=== PATIENT | male | born 1990 | race American Indian/Alaskan Native ===

== ENCOUNTER 2020-04-01 12:40 | Emergency (ER) | payer SELFPAY ==
--- NOTE | 2020-04-01 12:58 | Event Note ---
ED Screening Note Date of service: 04/01/20 Time: 12:58 ED Screening Note: Patient complains of deformity and injury to right fourth finger after playing basketball today Patient will likely need finger reduction This initial assessment/diagnostic orders/clinical plan/treatment(s) is/are subj ect to change based on patients health status, clinical progression and re- assessment by fellow clinical providers in the ED. Further treatment and workup at subsequent clinical providers discretion. Patient/guardian urged not to elope from the ED as their condition may be serious if not clinically assessed and managed. Initial orders include: ACC X-ray
[2020-04-01 12:59] VITALS: BP 153/82
[2020-04-01] MEDS ORDERED: oxyCODONE /ACETAMINOPHEN 5-325MG TAB PO ONE (12:59)
[2020-04-01] MEDS ORDERED: IBUPROFEN 800 MG TAB PO ONE (12:59)
--- NOTE | 2020-04-01 13:41 | XRay Report ---
RIGHT HAND 2 VIEWS INDICATION: injury, pain, deformity to 4th digit. COMPARISON: None. IMPRESSION: There is posterior dislocation at the PIP joint of the fourth digit. No obvious associat ed fracture. The remaining bony structures and joint spaces are unremarkable. 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 Signer Name: Haroldo Lloyd Jr, MD Signed: 04/01/2020 1:37 PM Workstation Name: [id number]
--- NOTE | 2020-04-01 18:04 | Emergency Department Report ---
ED Upper Extremity Inj HPI - General Chief Complaint: Extremity Injury, Upper Stated Complaint: RT FINGER BROKEN Time Seen by Provider: 04/01/20 12:56 Source: patient Mode of arrival: Ambulatory Limitations: No Limitations - History of Present Illness MD Complaint: Injury to:: right, finger -: hour(s) (6) Other Extremity Injury: Fingers: Right Place: outdoors (Plan basketball hit finger resulting in jamming dislocation to the fourth phalange) Worsens With: movement of extremity Context: direct blow, injury Associated Symptoms: other (Deformity). denies: numbness, neck pain, nausea/vomiting, heard/felt popping sensat - Related Data Previous Rx's Medication Instructions Recorded Last Taken Type Acetaminophen/Codeine [Tylenol 1 tab PO Q6H PRN #10 tab 04/01/20 Unknown Rx /Codeine # 3 tab] Allergies Allergy/AdvReac Type Severity Reaction Status Date / Time No Known Allergies Allergy Unverified 04/01/20 12:56 ED Review of Systems ROS: Stated complaint: RT FINGER BROKEN Other details as noted in HPI Comment: All other systems reviewed and negative ED Past Medical Hx - Past Medical History Previous Medical History?: No - Surgical History Past Surgical History?: No - Social History Smoking Status: Unknown if ever smoked Substance Use Type: None - Medications Home Medications: Home Medications Medication Instructions Recorded Confirmed Last Taken Type Acetaminophen/Codeine [Tylenol 1 tab PO Q6H PRN #10 tab 04/01/20 Unknown Rx /Codeine # 3 tab] ED Physical Exam - General Limitations: No Limitations General appearance: alert, in no apparent distress - Head Head exam: Present: atraumatic, normocephalic - Eye Eye exam: Present: normal appearance - ENT ENT exam: Present: mucous membranes moist - Neck Neck exam: Present: normal inspection - Respiratory Respiratory exam: Present: normal lung sounds bilaterally. Absent: respiratory distress - Cardiovascular Cardiovascular Exam: Present: regular rate, normal rhythm. Absent: systolic murmur, diastolic murmur, rubs, gallop - GI/Abdominal GI/Abdominal exam: Present: soft, normal bowel sounds - Rectal Rectal exam: Present: deferred - Extremities Exam Extremities exam: Present: normal inspection, tenderness, joint swelling - Expanded Upper Extremity Exam Right Hand L/R Back: 1 - Swelling and deformity to the PIP of this joint capillary refill present slightly slowed joint is still warm no bruising no pallor noted - Back Exam Back exam: Present: normal inspection. Absent: CVA tenderness (R), CVA tenderness (L) - Neurological Exam Neurological exam: Present: alert, oriented X3 - Psychiatric Psychiatric exam: Present: normal affect, normal mood - Skin Skin exam: Present: warm, dry, intact, normal color. Absent: rash ED Course Vital Signs 04/01/20 04/01/20 12:57 13:07 Temperature 98 F Pulse Rate 95 H Respiratory 16 18 Rate Blood Pressure 153/82 [Right] O2 Sat by Pulse 97 Oximetry - Orthopedic Joint Reduction Joint #1 Consent Obtained: verbal consent Time Out Performed: Yes Side: right Joint Reduction Location: finger Analgesia: digital block Local Anesthetic Used: Lidocaine 2% Amount of Anesthetic Used (mls): 4 Post-Reduction Neuro Exam: intact Post-Reduction Vascular Exam: intact (Capillary refill brisk) Post Reduction X-Ray Obtained: Yes Post Reduction X-Ray Results: reduced Splint Applied: Yes Patient Tolerated Procedure: well ED Medical Decision Making - Radiology Data Radiology results: report reviewed Referring Physician:RL ISAACPatient Name:GOPAL MANNINGPatient ID:[id number] of :[id number]:MaleAccession:[id number] Date:[id number] Status:Finalized Findings [address] [address] XRay Report Signed Patient: GOPAL MANNING MR#: [id number] : 1990 Acct:[id number] Age/Sex: 29 / M ADM Date: 04/01/20 Loc: ED Attending Dr: Ordering Physician: RL ISAAC Date of Service: 04/01/20 Procedure(s): XR hand 2V RT Accession Number(s): [id number] cc: RL ISAAC Fluoro Time In Minutes: RIGHT HAND 2 VIEWS INDICATION: injury, pain, deformity to 4th digit. COMPARISON: None. IMPRESSION: There is posterior dislocation at the PIP joint of the fourth digit. No obvious associated fracture. The remaining bony structures and joint spaces are unremarkable. Chronic deformity of the fifth metacarpal neck is suspected. Signer Name: Haroldo Lloyd Jr, MD Signed: 04/01/2020 1:37 PM Workstation Name: [id number] Transcribed By: TTR Dictated By: HAROLDO LLOYD JR, MD Electronically Authenticated By: HAROLDO LLOYD JR, MD Signed Date/Time: 04/01/201336 DD/ 35 TD/TT: Critical care attestation.: If time is entered above; I have spent that time in minutes in the direct care of this critically ill patient, excluding procedure time. ED Disposition Clinical Impression: Finger dislocation Disposition: - TO HOME OR SELFCARE Is pt being admited?: No Does the pt Need Aspirin: No Condition: Stable Instructions: Finger or Thumb Dislocation, [id number], Cast or Splint Care, Adult Prescriptions: Acetaminophen/Codeine [Tylenol /Codeine # 3 tab] 1 tab PO Q6H PRN #10 tab PRN Reason: Pain , Severe (7-10) Referrals: SHEILA ELMORE MD [Staff Physician] - 3-5 Days
--- NOTE | 2020-04-01 18:57 | XRay Report ---
RIGHT RING FINGER 2 VIEWS POSTREDUCTION INDICATION / CLINICAL INFORMATION: MAIN. COMPARISON: 04/01/2020 from 1328 hours FINDINGS: The dislocation of the proximal interphalangeal joint of the ring finger has been reduced. No definit e fracture is seen. Signer Name: Richard Clay MD FACJennifer Signed: 04/01/2020 6:57 PM Workstation Name: [id number]
== END 2020-04-01 19:33 | disposition home or self-care (01) ==
LOC: ED 12:40
DX: S63.258 Unspecified dislocation of other finger (principal); Z79.899 Other long term (current) drug therapy; X58.XXXA Exposure to other specified factors, initial encounter; Y93.67 Activity, basketball; Y92.89 Other specified places as the place of occurrence of the external cause; Y99.8 Other external cause status